=== PATIENT | female | born 1965 | race Caucasian/White ===

== ENCOUNTER 2016-04-07 13:53 | Emergency (ER) | payer SELFPAY ==
[~2016-04-07] VITALS: Ht 157.5 cm; Wt 65.0 kg
[2016-04-07 13:56] VITALS: BP 217/117; PULSE 110; RESP 16; TEMP 98.7; O2SAT 99
[2016-04-07] MEDS ORDERED: TRAM50TA PO (15:49)
[2016-04-07] MEDS ORDERED: ACETAMINOPHEN/HYDROcodone 325 MG/5 MG TAB PO ONE (16:00)
--- NOTE | 2016-04-07 16:28 | PD ---
HPI Chief Complaint: Musculoskeletal Complaint Time Seen by Provider: 15:30 Travel History International Travel<30 days: No Contact w/Intl Traveler<30days: No Traveled to known affect area: No History of Present Illness HPI 51-year-old female presents to the emergency room for evaluation of chronic left knee pain. Patient reports history of knee pain for about 1 year. She was told she has osteoarthritis but was unable to follow-up because of lack of primary care physician and insurance. Patient reports severe pain every day but 2 days ago she developed burning pain in addition. Pain radiates up and down her entire leg. Focused around the center of the left knee. Worse with range of motion and ambulation. Improved slightly with soaking in warm salt water. Patient states she is trying everything [id number] including aspirin, multiple topical creams, Aleve, and ibuprofen without any relief in symptoms. States she can no longer take the pain and it is affecting her activities of daily living. Denies paresthesias. PFSH Past Medical History Arthritis: Yes Anxiety: Yes Depression: Yes Heart Rhythm Problems: No Cardiac Catheterization: No Cardiovascular Problems: No High Cholesterol: Yes Congestive Heart Failure: No Diabetes: No Diminished Hearing: No Hypertension: Yes Tetanus Vaccination: < 5 Years Influenza Vaccination: No ?: Not Menopausal: Yes Past Surgical History Section: Yes Coronary Artery Bypass Graft: No Family History Family Myocardial Infarction: Yes (mom at age 72) Social History Alcohol Use: Yes Tobacco Use: Yes (3-4 CIG DAILY) Substance Use: No Allergies-Medications (Allergen,Severity, Reaction): Coded Allergies: *MDRO Multi-Drug Resistant Organism (Verified Allergy, Unknown, 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 Afebrile. Ambulatory. Crying in pain. SKIN: Warm and dry. No erythema or ecchymosis. HEAD: Normocephalic. EYES: No scleral icterus. No injection or drainage. NECK: Supple, trachea midline. No JVD or lymphadenopathy. EXTREMITY: Left knee moderately tender to palpation. Full range of motion in all joints of the left lower extremity. No obvious edema or effusion. 2+ dorsalis pedis pulse. Distal sensation intact. Data Data Last Documented VS Vital Signs Date Time Temp Pulse Resp B/P Pulse Ox O2 Delivery O2 Flow Rate FiO2 04/07/16 13:56 98.7 110 16 217/117 99 Orders Acetamin-Hydrocod 325-5 Mg ([place] 5-325 (04/07/16 16:00) MDM Medical Decision Making Medical Screen Exam Complete: Yes Emergency Medical Condition: Yes Medical Record Reviewed: Yes Differential Diagnosis Fracture versus strain versus sprain versus effusion Narrative Course 51-year-old female with history of osteoarthritis in the knee presents to the emergency room for evaluation of chronic left knee pain that worsened 2 days ago without trauma or injury. Knee pain started 1+ year ago. Left lower extremity is neurovascularly intact with 2+ dorsalis pedis pulse. Full range of motion of the left knee without difficulty. Moderately tender to palpation. No erythema, ecchymosis, or edema. No evidence of septic arthritis or DVT. Patient had a x-ray 1.5 years ago of her knee that was unremarkable. This is acute on chronic pain; no indication for reimaging. Patient is crying in pain and her blood pressure is markedly high. She was given Lortab in the emergency room. Knee was wrapped with an John wrap. Patient discharged with tramadol and told to follow up with the community clinic for further management of her chronic pain. Told to return for worsening symptoms. She understands and agrees to plan. Diagnosis Primary Impression: Left knee pain Qualified Code: M25.562 - Chronic pain of left knee Referrals: Primary Care Physician Patient Instructions: General Instructions, Knee Pain (ED) Additional Instructions: Rest and drink plenty of fluids. Take tramadol as directed, as needed for pain. Apply ice to the affected area for 20 minutes at a time, as needed for pain and swelling. Follow-up with a primary care physician. Return to the emergency room for worsening symptoms. Med/Other Pt SpecificInfo: Prescription(s) given Scripts Tramadol 50 Mg Tab50 Mg PO Q6H PRN (PAIN) #12 TAB Ref 0 Prov:Sydni Orozco MD 04/07/16 Disposition: 01 DISCHARGE HOME Condition: Stable Kerry Pelra Apr 07, 2016 16:28
[2016-04-07 16:36] VITALS: BP 178/107; PULSE 106; RESP 17; O2SAT 98
--- NOTE | 2016-04-07 17:30 | RADHPO ---
EXAM DATE/TIME: 04/07/2016 17:15 [facility] COMPARISON: No previous studies available for comparison. INDICATIONS : Entire left knee pain. No known injury. MEDICAL HISTORY : Arthritis. Hypercholesterolemia. Hypertension. Anxiety, MRSA SURGICAL HISTORY : section. ENCOUNTER: Initial ACUITY: 1 year PAIN SCORE: 10/10 LOCATION: Left knee FINDINGS: Four view examination of the left knee demonstrates no evidence of fracture or dislocation. Bony min eralization is normal. The articular surfaces are intact. The suprapatellar soft tissues have a nor mal configuration. CONCLUSION: Unremarkable examination of the left knee. Med Doshi MD on April 07, 2016 at 17:28 Board Certified Radiologist. This report was verified electronically.
--- NOTE | 2016-04-07 17:45 | PD ---
Physical Exam Date Seen by Provider: Apr 07, 2016 Narrative The patient requested to see the physician when the nurse went to discharge her. Patient is convinced that she has bone cancer. She reports ongoing knee pain for quite some time. On my exam, there is no swelling or deformity. The knee is stable. She is distally neurovascularly intact. There is some crepitus with range of motion. I reviewed her records and she has not had a recent x-ray of her knee. The x- ray is negative. The patient will now be discharged with Kerry's discharge instructions. Data Data Last Documented VS Vital Signs Date Time Temp Pulse Resp B/P Pulse Ox O2 Delivery O2 Flow Rate FiO2 04/07/16 16:36 106 17 178/107 98 Room Air 04/07/16 13:56 98.7 Orders Acetamin-Hydrocod 325-5 Mg ([place] 5-325 (04/07/16 16:00) Knee, Complete (4vws) (04/07/16 17:10) MDM Supervised Visit with ROSSANA: Yes Diagnosis Primary Impression: Left knee pain Qualified Code: M25.562 - Chronic pain of left knee Referrals: Primary Care Physician call for appointment Patient Instructions: General Instructions, Narcotic given in the ED, Knee Pain (ED) Departure Forms: Tests/Procedures Additional Instruction: Rest and drink plenty of fluids. Take tramadol as directed, as needed for pain. Apply ice to the affected area for 20 minutes at a time, as needed for pain and swelling. Follow-up with a primary care physician. Return to the emergency room for worsening symptoms. Scripts Tramadol 50 Mg Tab50 Mg PO Q6H PRN (PAIN) #12 TAB Ref 0 Prov:Sydni Orozco MD 04/07/16 Disposition: 01 DISCHARGE HOME Condition: Stable Sydni Orozco MD Apr 07, 2016 17:45
== END 2016-04-07 18:21 | disposition home or self-care (01) ==
LOC: PHED 13:53 → PHEFT 18:21
DX: M25.562 Pain in left knee (principal); I10 Essential (primary) hypertension; E78.00 Pure hypercholesterolemia, unspecified; F17.210 Nicotine dependence, cigarettes, uncomplicated
CPT/HCPCS: 73564; 99283